=== PATIENT | female | born 1990 | race Caucasian/White ===

== ENCOUNTER 2021-08-24 19:34 | Emergency (ER) | payer BC, SELFPAY ==
[2021-08-24 19:58] VITALS: BP 136/87; PULSE 112; RESP 21; TEMP 36.9; O2SAT 99; BMI 27.3
[2021-08-24 20:02] VITALS: BP 136/87; PULSE 112; RESP 21; TEMP 36.9
[2021-08-24 20:06] LABS: UTC Influenza A Antigen Negative (Negative); UTC Influenza B Antigen Negative (Negative)
--- NOTE | 2021-08-24 20:09 | HMH.EDUTC ---
[facility] [place] Clinical Impression: COVID-19 virus test result unknown Disposition: Home, Self-Care Condition on Discharge: Good Instructions: Nausea and Vomiting-Adult, Diarrhea, DI for COVID-19 (Suspected or Confirmed ) Additional Instructions: Monitor temperature. Seek treatment if fever develops. Follow-up immediately if new or worse symptoms worsen or no noticeable improvement over 48 hours. Increase fluids such as water, Gatorade, Powerade, juice or Pedialyte No food is okay as long as you are drinking. Once ready to eat start bland such as bananas, rice, applesauce, toast. Contagious until no diarrhea, vomiting, fever times 48 hours without medication Avoid antidiarrheals unless told otherwise. Best to let the virus run its course. Follow-up immediately for new or worsening symptoms or no noticeable improvement over the next 48 hours. covid swab was sent to lab, call tomorrow for results. self isolate until test results are known to be negative Prescriptions: Ondansetron [Zofran 4mg ODT] 4 mg PO TIDP PRN 3 Days #14 tab PRN Reason: Nausea Prescription Printed Referrals: Huan Oliva MD [Primary Care Provider] - Time of Disposition: 20:13 Medical Decision Making - Stephane Inquiry Pt receiving controlled substance: No Vital Signs: 08/24/21 19:58 08/24/21 20:02 Temperature 98.4 F 98.4 F Temperature Source Oral Pulse Rate 112 H Pulse Rate [Left] 112 H Respiratory Rate 21 21 Blood Pressure 136/87 Blood Pressure [Right Arm] 136/87 Blood Pressure Mean [Right Arm] 103 02 Sat by Pulse Oximetry 99 - Lab Data Lab Results 08/24/21 19:57: Influenza Type A Ag Negative, Influenza Type B Ag Negative Orders (Tests/Meds): ORDERS Category Date Time Status Covid-19 Nasal PCR ([facility]) Routine Lab 08/24/21 19:57 Ordered [facility] [place] H[place] - General Chief complaint: Urgent [facility] Stated complaint: v&d,ABD PAIN BODY ACHES Time Seen by Provider: 08/24/21 20:09 Mode of Arrival: Ambulatory Source of Information: Patient Limitations: No Limitations Description of Symptoms (Recalled from Triage Doc. by RN): pt c/o n/v and body aches. HEENT Symptoms (Recalled from RN notes): No Resp Symptoms (Recalled from RN notes): No Skin Symptoms (Recalled from RN notes): No MS Symptoms (Recalled from RN notes): No Functional Status (Recalled from RN notes): wnl - History of Present Illness Provider Complaint: 31 yr old female presents for c/o n/v/d and body aches since noon, has been exposed to covid - Related Data Previous Rx's Medication Instructions Recorded Ondansetron [Zofran 4mg ODT] 4 mg PO TIDP PRN 3 Days #14 tab 08/24/21 Allergies Allergy/AdvReac Type Severity Reaction Status Date / Time Pertussis Vaccines Allergy Unknown Unverified 07/21/17 15:13 [PERTUSSIS VACCINES] - Worker's Comp Is this a Worker's Comp case?: No [facility] History - Hepatitis A Screen Drug use history?: No High risk sexual behaviors?: No History of sexually transmitted infection?: No Currently employed?: No Childcare worker?: No Do you have indoor plumbing?: Yes Do you have electricity?: Yes Attestation statement:: This patient has been screened for Hepatitis A risk factors. I have reviewed the patient's past medical history: Yes ROS Obtained: Yes Systems reviewed as appropriate & no additional complaints - Constitutional Constitutional: Reports system reviewed and no additional complaints, except as docu, Reports body ache, Denies fatigue, Denies fever(s), Reports poor appetite - Eyes Eyes: Reports system reviewed and no additional complaints, except as docu, Denies change in vision - ENT Ears, Nose, Mouth, and Throat: Reports system reviewed and no additional complaints, except as docu, Denies sore throat - Cardiovascular Cardiovascular: Reports system reviewed and no additional complaints, except as docu, Denies chest pain - Respiratory Respiratory: Reports s
== END 2021-08-24 21:13 | disposition home or self-care (01) ==
PROVIDERS: Emergency Provider Nurse Practitioner Family; PCP Ophthalmology
DX: Z20.822 Contact with and (suspected) exposure to COVID-19 (principal); R11.10 Vomiting, unspecified; R19.7 Diarrhea, unspecified
CPT/HCPCS: 87804; 96365; 99202; C9803; G0463; U0003; U0005